=== PATIENT | male | born 2005 | race Caucasian/White ===

== ENCOUNTER 2023-05-17 18:03 | Emergency (ER) | payer BC ==
[2023-05-17] MEDS ORDERED: methylPREDNISolone Sod Succ/PF 125 MG/2 ML VIAL ONE (18:39)
[2023-05-17] MEDS ORDERED: Sodium Chloride 0.9% 1,000 ML ONE (18:39)
[2023-05-17] MEDS ORDERED: Famotidine/PF 20 mg/2ml Vial ONE (18:39)
== END 2023-05-17 19:30 | disposition home or self-care (01) ==
LOC: NAV ERS 18:03
DX: L50.9 Urticaria, unspecified (principal)
CPT/HCPCS: 96374; 96375; J2930; J7050; S0028